=== PATIENT | female | born 1985 | race Caucasian/White ===

== ENCOUNTER 2017-10-01 00:01 | Inpatient (IN) ==
[2017-10-01] MEDS ORDERED: ONDANSETRON HCL/PF 2 MG/ML VIAL IV PRN ×2 (00:14→13:19)
[2017-10-01] MEDS ORDERED: OXYTOCIN/DEXTROSE 5%-WATER 30 UNITS/500 ML BAG IV ONE ×2 (00:14→15:43)
--- NOTE | 2017-10-01 09:48 | PN ---
Progess Note - Interim Date: 10/01/17 Time: 09:45 Narrative: 10/01/17 09:45 Patient starting to become uncomfortable with contractions Vital signs stable. Pitocin at 18 mu/min. FHT: 130 baseline, reassuring Contractions q 3-4 min Cervix: 3-4/70/-2, AROM-clear at 0900 Impression: Intrauterine at 39 4/7 weeks induction of labor Plan: Continue present plan
[2017-10-01] MEDS: RINGER'S SOLUTION,LACTATED 1,000 ML IV ONE ×2 (13:01→13:56)
[2017-10-01] MEDS ORDERED: BUPIVACAINE HCL/0.9 % NACL/PF 250 ML EP PRN (13:19)
[2017-10-01] MEDS ORDERED: NALOXONE HCL 1 MG/1 ML SYRG IV PRN (13:19)
[2017-10-01] MEDS ORDERED: fentaNYL CITRATE/PF 50 MCG/ML AMPUL IT SCH (13:30)
[2017-10-01] MEDS ORDERED: LIDOCAINE HCL 50 ML VIAL IJ PRN (14:00)
[2017-10-01] MEDS ORDERED: LIDOCAINE HCL 50 ML VIAL ONE (14:14)
--- NOTE | 2017-10-01 14:55 | OR ---
Anesthesia Procedure Note - Anesthesia Procedure Note Narrative: Vital Signs - Last Taken Temp 37.1 C 10/01/17 13:21 Pulse 81 10/01/17 13:21 Resp 20 10/01/17 13:21 BP 115/69 10/01/17 13:21 Pulse Ox 98 10/01/17 13:21 10/01/17 14:55 ANESTHESIA PROCEDURE NOTE Date of Procedure: 10/01/2017 Time of procedure: 1330. Performed by: Pete Taylor CRNA Eligibility Specialist: None. Preprocedure diagnosis: Active labor. Post procedure diagnosis: Same. Procedure: Insertion of labor epidural. Indications: The patient is a 32 -year-old multigravida female in active labor requesting labor epidural for pain management. Findings: See below. Details of the procedure: The patient was placed in a sitting position. Back was prepped with DuraPrep. Patient was then draped in a sterile fashion. Lidocaine 1% was infiltrated to the skin and subcutaneous tissues at the level of the L3 4 interspace. The epidural space was identified using a 18-gauge Tuohy needle with [id number] technique. 20 mcg fentanyl was given intrathecally using a 27 ga. spinal needle. Epidural catheter was inserted without difficulty. Negative test dose was elicited using 5 mL of 1.5% preservative-free lidocaine plus epinephrine 1 200,000. The epidural catheter was then taped and secured in place. EBL: Minimal. Fluids: N/A. Specimen: N/A. Post procedure condition: The patient tolerated the procedure well. No complications were noted. Thank you for this consultation. Hines CRNA
[2017-10-01] MEDS ORDERED: HYDROCORTISONE 30 APPL TUBE TP PRN (15:43)
[2017-10-01] MEDS ORDERED: GLYCERIN/WITCH HAZEL LEAF 40 APPL BOX TP PRN (15:43)
[2017-10-01] MEDS ORDERED: BENZOCAINE/MENTHOL 81 SPRAY CAN TP PRN (15:43)
[2017-10-01] MEDS ORDERED: SENNOSIDES 8.6 MG TABLET PO PRN (15:43)
[2017-10-01] MEDS ORDERED: oxyCODONE HCL/ACETAMINOPHEN 1 TAB TABLET PO PRN (15:43)
[2017-10-01] MEDS ORDERED: BISACODYL 10 MG SUPP.RECT RC PRN (15:43)
--- NOTE | 2017-10-01 15:46 | OR ---
Operative Report - Dictated Report Narrative: Spontaneous vaginal delivery of viable female at 1425 on 10/01/2017 with Apgars 8 and 9, weighing 3868 g and ANJU position with tight nuchal cord 1 Cord clamping delayed approximately 1 minute Placenta delivered complete, intact, with three vessel cord Estimated blood loss: less than 50 ml Anesthesia: epidural, pudendal nerve block Lacerations: None History for MU Definition: * The number of deliveries resulting in a live the patient experienced prior to current hospitalization * The previous delivery of live twins or any live multiple gestation is considered one live event. *If primagravida or nulliparous is documented select zero for the number of previous live births. Live Events: 4
[2017-10-01] MEDS: IBUPROFEN 800 MG TABLET PO PRN ×2 (17:29→23:36)
[2017-10-01] MEDS: oxyCODONE HCL/ACETAMINOPHEN 1 TAB TABLET PO PRN ×2 (17:30→22:29)
[2017-10-01] MEDS: DOCUSATE SODIUM 100 MG CAPSULE PO SCH (20:53)
[2017-10-02] MEDS: oxyCODONE HCL/ACETAMINOPHEN 1 TAB TABLET PO PRN ×6 (01:55→22:13)
[2017-10-02] MEDS: IBUPROFEN 800 MG TABLET PO PRN ×2 (09:29→17:32)
[2017-10-02] MEDS: DOCUSATE SODIUM 100 MG CAPSULE PO SCH ×2 (09:29→21:18)
[2017-10-02] MEDS: PRENATAL VITS96/IRON FUM/FOLIC 1 TAB TABLET PO SCH (09:33)
--- NOTE | 2017-10-02 11:04 | PN ---
Subjective - Date and Time Seen Date: 10/02/17 Time: 11:03 Objective - Vitals Vitals: Last Vital Signs Temp 36.5 C 10/02/17 06:30 Pulse 85 10/02/17 06:30 Resp 18 10/02/17 06:30 BP 121/70 10/02/17 06:30 Pulse Ox 98 10/02/17 06:30 Patient denies complaints. Lochia wnl Abdomen - soft, nontender Uterus - firm, at umbilicus - 1 No calf tenderness Impression: day #1 - s/p spontaneous vaginal delivery. Plan: Continue routine care
[2017-10-03] MEDS: IBUPROFEN 800 MG TABLET PO PRN ×3 (03:21→15:35)
[2017-10-03] MEDS: oxyCODONE HCL/ACETAMINOPHEN 1 TAB TABLET PO PRN ×3 (03:21→15:35)
--- NOTE | 2017-10-03 09:24 | PN ---
Subjective - Date and Time Seen Date: 10/03/17 Time: 09:24 Objective - Vitals Vitals: Last Vital Signs Temp 36.6 C 10/03/17 06:54 Pulse 70 10/03/17 06:54 Resp 18 10/03/17 06:54 BP 133/73 10/03/17 06:54 Pulse Ox 97 10/03/17 06:54 Patient denies complaints. Lochia wnl Abdomen - soft, nontender Uterus - firm, at umbilicus - 2 No calf tenderness Impression: day #2 - s/p spontaneous vaginal delivery. Plan: Routine discharge instructions
[2017-10-03] MEDS: PRENATAL VITS96/IRON FUM/FOLIC 1 TAB TABLET PO SCH (09:42)
[2017-10-03] MEDS: DOCUSATE SODIUM 100 MG CAPSULE PO SCH (09:43)
[2017-10-03 11:47] VITALS: BP 128/70
== END 2017-10-03 15:45 | disposition home or self-care (01) | DRG 775 ==
LOC: OB 00:01
PROVIDERS: ADMIT Obstetrics & Gynecology; ATTEND Obstetrics & Gynecology
DX: Z3A.40 40 weeks gestation of pregnancy; O69.1XX0 Labor and delivery complicated by cord around neck, with compression, not applicable or unspecified; Z37.0 Single live birth; D64.9 Anemia, unspecified; O99.02 Anemia complicating childbirth
CPT/HCPCS: 59025